=== PATIENT | female | born 1950 ===

== ENCOUNTER 2025-02-22 09:53 | Emergency (ER) | payer MEDICARE ==
[~2025-02-22] VITALS: Ht 147.3 cm; Wt 68.0 kg
[~2025-02-22 09:53] MED LIST: AMLODIPINE BESY10 MG PO; ATOR40TA PO; CARVEDILOL12.5 MG PO; FOLI1 PO; FURO80 PO; HYDRA25 PO; ISOSORBIDE MONO60 MG PO; SITA25T2 PO; VALSARTAN320 MG PO
[2025-02-22] MEDS ORDERED: CARVEDILOL6.25 MG PO (11:08)
== END 2025-02-22 13:26 | disposition home or self-care (01) ==
LOC: ER 09:53
DX: I13.2 Hypertensive heart and chronic kidney disease with heart failure and with stage 5 chronic kidney disease, or end stage renal disease (principal); E11.22 Type 2 diabetes mellitus with diabetic chronic kidney disease; N18.6 End stage renal disease; I50.9 Heart failure, unspecified; F03.90 Unspecified dementia, unspecified severity, without behavioral disturbance, psychotic disturbance, mood disturbance, and anxiety; F17.200 Nicotine dependence, unspecified, uncomplicated; Z99.2 Dependence on renal dialysis; Z79.899 Other long term (current) drug therapy; Z79.82 Long term (current) use of aspirin; Z79.01 Long term (current) use of anticoagulants
CPT/HCPCS: 99283